=== PATIENT | female | born 1995 | race Caucasian/White ===

== ENCOUNTER → 2018-03-19 | Outpatient (REF) | payer OTHER | LOC: M LAB REF 18:35 | DX: R30.0 Dysuria (principal) | CPT/HCPCS: 87186 ==

== ENCOUNTER → 2018-04-16 | Outpatient (REF) | payer OTHER | LOC: M LAB REF 15:32 | DX: R10.815 Periumbilic abdominal tenderness (principal) | CPT/HCPCS: 87086 ==

== ENCOUNTER 2019-01-20 21:28 | Emergency (ER) | payer OTHER ==
[~2019-01-20] VITALS: Ht 157.5 cm; Wt 75.5 kg
[2019-01-20 21:28] VITALS: BP_DIAS 79
[2019-01-20 22:03] LABS: BASO % 0.2 % (0.0-1.0); EOS # 0.1 10^3/uL (0.0-0.5); EOS % 0.8 % (0.0-3.0); HEMATOCRIT 41.2 % (36.0-47.0); HEMOGLOBIN 14.1 g/dl (12.0-15.5); LYMPH # 2.4 10^3/uL (1.5-5.0); LYMPH % 14.6 % (24.0-44.0); MEAN CORPUSCULAR HEMOGLOBIN 30.5 pg (27.0-33.0); MEAN CORPUSCULAR HGB CONC 34.2 g/dl (32.0-36.5); MONO # 0.8 10^3/uL (0.0-0.8); MONO % 5.1 % (0.0-5.0); NEUTROPHILS # 12.7 10^3/uL (1.5-8.5); NEUTROPHILS % 78.6 % (36.0-66.0); PLATELET COUNT, AUTOMATED 349 10^3/uL (150-450); RED BLOOD COUNT 4.63 10^6/uL (4.00-5.40); WHITE BLOOD COUNT 16.2 10^3/uL (4.0-10.0)
[2019-01-20 22:43] LABS: ALBUMIN 3.6 GM/DL (3.2-5.2); ALT/SGPT 23 U/L (12-78); BILIRUBIN,DIRECT 0.2 MG/DL (0.0-0.2); BILIRUBIN,TOTAL 0.5 MG/DL (0.2-1.0); BLOOD UREA NITROGEN 8 MG/DL (7-18); CALCIUM LEVEL 9.3 MG/DL (8.5-10.1); CARBON DIOXIDE LEVEL 17 MEQ/L (21-32); CHLORIDE LEVEL 103 MEQ/L (98-107); CREATININE FOR GFR 0.63 MG/DL (0.55-1.30); GLOMERULAR FILTRATION RATE > 60.0 (>60); GLUCOSE, FASTING 92 MG/DL (70-100); HCG, SERUM QUANTITATIVE 95440 MIU/ML; LIPASE 136 U/L (73-393); POTASSIUM SERUM 3.7 MEQ/L (3.5-5.1); SODIUM LEVEL 135 MEQ/L (136-145); TOTAL PROTEIN 7.8 GM/DL (6.4-8.2)
[2019-01-20] MEDS ORDERED: PRENCHW PO (23:22)
[2019-01-20] MEDS ORDERED: METOCLOPRAMIDE INJ 10MG/2ML VIAL (J2765) IV ONE (23:30)
[2019-01-20] MEDS ORDERED: NS 1,000 ML IV ONE (23:30)
[2019-01-21] MEDS ORDERED: KEFL500C17 PO (00:28)
[2019-01-21] MEDS ORDERED: CEPHALEXIN 500 MG CAP PO ONE (00:30)
[2019-01-21 01:03] VITALS: BP_SYST 121
== END 2019-01-21 01:04 | disposition home or self-care (01) ==
LOC: M ED 21:28
DX: O23.31 Infections of other parts of urinary tract in pregnancy, first trimester (principal); Z3A.11 11 weeks gestation of pregnancy; Z79.899 Other long term (current) drug therapy
CPT/HCPCS: 80048; 80076; 81001; 83690; 84702; 85025; 87086; 96361; 96374; 99284; J2765

== ENCOUNTER 2019-08-16 09:39 | Inpatient (IN) | payer OTHER ==
[~2019-08-16] VITALS: Ht 157.5 cm; Wt 86.3 kg
[2019-08-16] VITALS (23 sets, daily range): BP systolic 97–149; BP diastolic 54–89
[~2019-08-16 09:39] MED LIST: KEFL500C17 PO; PRENCHW PO
[2019-08-16] MEDS ORDERED: FUSICAP PO (10:04)
[2019-08-16] MEDS ORDERED: miSOPROStol 50 MCG 1/2 TAB (S0191) PO ONE (11:00)
[2019-08-16] MEDS ORDERED: LACTATED RINGER'S 1000 ML IV ONE (11:00)
[2019-08-16] MEDS: LR 1,000 ML IV SCH ×2 (11:02→23:37)
[2019-08-16 11:14] LABS: HEMATOCRIT 32.8 % (36.0-47.0); HEMOGLOBIN 10.6 g/dl (12.0-15.5); MEAN CORPUSCULAR HEMOGLOBIN 26.9 pg (27.0-33.0); MEAN CORPUSCULAR HGB CONC 32.3 g/dl (32.0-36.5); MEAN CORPUSCULAR VOLUME 83.2 fl (80.0-96.0); PLATELET COUNT, AUTOMATED 300 10^3/uL (150-450); RED BLOOD COUNT 3.94 10^6/uL (4.00-5.40); WHITE BLOOD COUNT 10.3 10^3/uL (4.0-10.0)
[2019-08-16] MEDS: miSOPROStol 50 MCG 1/2 TAB (S0191) PO SCH ×2 (16:27→20:15)
[2019-08-16] MEDS ORDERED: fentaNYL 100 MCG/2 ML INJECTION (J3010) As Ordered ONE (21:37)
[2019-08-16] MEDS ORDERED: FENTANYL 2MCG/ML ROPIVACAINE 0.2% IN 0.9% NACL 100ML IVBAG As Ordered ONE (21:40)
[2019-08-16] MEDS: FENTANYL/ROPIVACAINE/NACL BAG 100 ML EPIDURAL SCH (22:31)
[2019-08-16] MEDS ORDERED: EPIDURAL COMMENT XX SCH (22:31)
[2019-08-16] MEDS ORDERED: ONDANSETRON 4MG/2ML VIAL (J2405) IV PRN (22:31)
[2019-08-16] MEDS ORDERED: LACTATED RINGER'S 1000 ML IV PRN (22:31)
[2019-08-16] MEDS ORDERED: diphenhydrAMINE INJ 50MG/ML VIAL (J1200) IV PRN (22:31)
[2019-08-16] MEDS ORDERED: EPIDURAL/PCA KEYS XX PRN (22:31)
[2019-08-16] MEDS ORDERED: REFRIGERATOR IV KEYS XX PRN (22:31)
[2019-08-16] MEDS ORDERED: NALOXONE INJ 0.4 MG/1 ML VIAL (J2310) IV PRN (22:31)
[2019-08-16] MEDS ORDERED: ePHEDrine SULFATE 25 MG/5 ML(5MG/ML) SYRINGE As Ordered ONE (23:00)
[2019-08-16] MEDS: ePHEDrine SULFATE 25 MG/5 ML(5MG/ML) SYRINGE IV PRN ×2 (23:37→23:38)
[2019-08-17] VITALS (22 sets, daily range): BP systolic 109–149; BP diastolic 56–88
[2019-08-17] MEDS: miSOPROStol 50 MCG 1/2 TAB (S0191) PO SCH ×2 (00:15→04:15)
[2019-08-17] MEDS ORDERED: OXYTOCIN DRIP 30 UNITS in IV 1 EA IV SCH ×2 (00:30→07:22)
[2019-08-17] MEDS ORDERED: FENTANYL 2MCG/ML ROPIVACAINE 0.2% IN 0.9% NACL 100ML IVBAG As Ordered ONE (05:16)
[2019-08-17] MEDS: FENTANYL/ROPIVACAINE/NACL BAG 100 ML EPIDURAL SCH (05:21)
[2019-08-17 07:26] LABS: CORD GAS ABE V -12.4; CORD GAS HCO3 V 14.6 MEQ/L; CORD GAS O2 SAT V 59.9 %; CORD GAS PCO2 V 36.8 mmHg; CORD GAS PH V 7.215 UNITS; CORD GAS PO2 V 32.7 mmHg; CORD GAS SBC V 14.3 MEQ/L; CORD GAS TCO2 V 15.7 MEQ/L
[2019-08-17 07:30] LABS: CORD GAS O2 SAT A < 15.0 %
[2019-08-17] MEDS ORDERED: MOM 30ML SUSPENSION UDC PO PRN (07:30)
[2019-08-17] MEDS ORDERED: ACETAMINOPHEN TAB 650MG DOSE (2X325MG) PO PRN (07:30)
[2019-08-17] MEDS ORDERED: ANUSOL HC CREAM 30GM TOP PRN (07:30)
[2019-08-17] MEDS ORDERED: METHYLERGONOVINE MALEATE 0.2 MG TAB PO PRN (07:30)
[2019-08-17] MEDS ORDERED: DIBUCAINE 1% OINTMENT 30GM TOP PRN (07:30)
[2019-08-17] MEDS ORDERED: RHOGAM 300 MCG (1500 IU) INJ (J2790) IM SCH (07:30)
[2019-08-17] MEDS ORDERED: DOCUSATE SODIUM 100 MG CAP PO PRN (07:30)
[2019-08-17] MEDS ORDERED: OXYTOCIN INJ 10 UNITS/ML VIAL (J2590) IV ONE (07:30)
[2019-08-17 07:32] LABS: CORD GAS ABE A -13.8; CORD GAS PCO2 A 60.5 mmHg; CORD GAS PH A 7.066 UNITS; CORD GAS PO2 A 13.2 mmHg; CORD GAS TCO2 A 18.8 MEQ/L
[2019-08-17] MEDS ORDERED: OXYTOCIN INJ 10 UNITS/ML VIAL (J2590) As Ordered ONE (08:16)
--- NOTE | 2019-08-17 08:25 | IPN ---
DATE: 08/17/2019 TIME: 1230 hours This lady has had an epidural in place because of contractions, which were moderate in intensity. PHYSICAL EXAMINATION: The cervix is 2 cm, anterior, -3 station, -2 station with a contraction, bulging membranes are noted and artificial rupture of membranes was drained done draining clear liquid. Polyhydramnios was noted. The vertex came well applied to the cervix. Contractions are still persistent and 2-6 minutes and 90 seconds. If required, we will augment with Pitocin. Category 1 strip now after the epidural. Safe to proceed.
--- NOTE | 2019-08-17 08:44 | HPE ---
DATE OF ADMISSION: 08/16/2019 23-year-old 1, para 0, LMP 11/02/2018, EDC 08/09/2019 at 40 and 1 weeks of gestation for induction of labor. LABORATORY DATA: O+, HIV negative, hep negative, RPR negative, rubella immune. Varicella immune. Pap normal. Urine negative. Gonorrhea and chlamydia negative. Early 1-hour glucose was 136, 3-hour GTT she is not complete but she has been monitoring her glucose and on evaluating her glucose checklist she is in good control. GBS negative. Risk factors were anemia and a BMI of 30.41. Blood pressure is 121/80, respirations 18, pulse 110, temperature 97.7. No urine is available. Hemoglobin 10.6, hematocrit 32.8 and platelets are 300. Symphysis fundus height is 40, vertex OA, heart sounds are normal. Category 1 strip. Bowel sounds are normal in four quadrants. Cervix is posterior, 1-2 cm, -3 station, thick and posterior. The plan is to hydrate the patient, add Cytotec and has planned an epidural, after which an ARM and augment with Pitocin if necessary. The rest of the examination is unremarkable. Normocephalic, atraumatic. Neck: Full range of motion. Pupils equal and reactive to light. Distal pulses are symmetric. No DVT, PE or superficial phlebitis. Chest is clear bilaterally to the bases. No wheezes or rhonchi. No CVA tenderness. Abdomen is soft, as mentioned. She has no arthralgia or myalgia. No complaint of joint pain. No complaint of cough, wheezes, shortness of breath or dyspnea on exertion. No bleeding. No bruising. Neuro complete. No incontinency, urgency or frequency. No nausea, vomiting, diarrhea or constipation. No diabetic issues. No heat or cold issues. She has no history of STDs. No abnormal Pap smears. PAST MEDICAL AND SURGICAL HISTORY: Unremarkable. FAMILY HISTORY: Noncontributory. SOCIAL HISTORY: She does not smoke, drink or abuse drugs. She is . No domestic violence. Her partner is supportive. We discussed the risks and benefits of vaginal delivery, including consent, which is delivery through the vagina with possible use of forceps or vacuum devices if needed for maternal or indications, forceps or vacuum devices may consist with vaginal delivery when normal pushing efforts cannot achieve delivery on their own or when deliveries needed in emergency for baby's well-being. Medications may be used to induce or augment labor in order achieve vaginal delivery. Episiotomy may be required to help the baby deliver vaginally. May also require repair of lacerations or tears to the vagina or vulva that are caused by delivery. In some cases emergencies arise and we have to do an emergency section, these are only done for maternal or indications and we discussed with the provider. delivery through the abdomen incision and some situations section may be safer for the mother and baby than continuing labor and is only performed again for clinically indicated reasons. Risk of vaginal delivery include but not limited to bleeding, infection, injury to the vagina or pelvic structures, injury to baby, damage to the uterus, reaction of anesthesia, uterine rupture, risk of hysterectomy, life-threatening bleeding situations or . Medications used to induce or augment labor may contribute to possible , hysterectomy or hemorrhage. heart rate abnormalities which need emergency section, risk of the perineal vaginal lacerations or risk of urinary or bowel injury. In addition, risks of use of forceps or vacuum include scratches, hematomas of the head, intracranial bleed of the baby or admission to the NICU. The patient expressed understanding and verbalized, 40-minute discussion. All questions were answered. We will continue with the plan of care.
[2019-08-17] MEDS ORDERED: NAPROXEN 250 MG TAB PO PRN (09:00)
[2019-08-17] MEDS: MEASLES,MUMPS,RUBELLA VACCINE INJ (MMR-II) (90707) SC SCH ×2 (09:12→20:32)
--- NOTE | 2019-08-17 14:14 | DN ---
DATE: 08/17/2019 24-year-old 1 admitted for induction of labor at 41 weeks of gestation. Risk factors were anemia and BMI of 30.1. She had an initial 1-hour glucose, which was elevated. She did not complete a 3-hour GTT; however, she did monitor her blood sugars and they were normal. She had an epidural in place. She had a spontaneous vaginal delivery of a live female 8 pounds 9 ounces, 3870 grams, scores of 8 and 9 at 1 and 5 minutes, respectively. Had terminal meconium with a cord around neck times one. Placenta delivered spontaneously thereafter. Three-vessels in the cord. The membranes were stained with meconium. She did have polyhydramnios with an artificial rupture of membranes. Arterial pH was 7.06, base excess -13.8. Venous pH 7.21, base excess -12.4. Prior to delivery, she had a urethral hematoma, significant bilateral labial swelling, multiple large hemorrhoids and the perineum that was swollen and purple from pushing. She sustained a first-degree tear right up the vaginal wall. She did have the suburethral hematoma, which did not extend and did not rupture. After the spontaneous delivery of the baby and the placenta, the repair of the midline vaginal tear with 2-0 Vicryl on a J 339. Sphincter was intact, mucosa was intact. Anterior, posterior and lateral quezada were intact as well. We plan to leave the Castellon catheter in for 6 hours and use an ice diaper during that period of time. In summary, we have a post term gestation, induction of labor, live female . The patient and mother tolerating procedure well. Uterus contracted well down under Pitocin.
[2019-08-17] MEDS: PRENATAL VITAMINS CHEWABLE TABLET PO SCH (14:52)
[2019-08-17] MEDS: ACETAMINOPHEN 500 MG TAB PO PRN (18:51)
[2019-08-18 06:00] VITALS: BP 119/62
[2019-08-18 07:02] LABS: HEMATOCRIT 27.5 % (36.0-47.0); HEMOGLOBIN 8.7 g/dl (12.0-15.5); MEAN CORPUSCULAR HEMOGLOBIN 26.7 pg (27.0-33.0); MEAN CORPUSCULAR HGB CONC 31.6 g/dl (32.0-36.5); MEAN CORPUSCULAR VOLUME 84.4 fl (80.0-96.0); PLATELET COUNT, AUTOMATED 248 10^3/uL (150-450); RED BLOOD COUNT 3.26 10^6/uL (4.00-5.40); WHITE BLOOD COUNT 16.5 10^3/uL (4.0-10.0)
--- NOTE | 2019-08-18 07:40 | IPN ---
DATE: 08/18/2019 This lady is a 24-year-old 1 now para 1 admitted for induction of labor at 41 weeks, had spontaneous vaginal delivery female 8 pounds 9 ounces, 3870 grams, scores of eight and nine at 1 and 5 minutes respectively. Arterial pH 7.06, base excess -13.8, venous pH 7.21, base excess -12.4. She did have some polyhydramnios and meconium stained liquid staining the membranes of the placenta and the baby. Cord was around the neck times one loose. She has a BMI of 30.1 and has had anemia. On her first day we discussed phlebitis, cystitis, mastitis, endometritis and cellulitis, diet, exercise, pain management, perineal, breast and wound care. Her admitting hemoglobin was 10.6, hematocrit 32.8 and platelets were 300. Her day #1 hemoglobin is 8.7, hematocrit 27.5 and platelets are 248. She is asymptomatic. Her vital signs this morning her blood pressure is 119/62, respirations 18, pulse 104, temperature 97.8. She is breast-feeding, doing well, passing gas and has voided. The rest examination is unremarkable. She is normocephalic, atraumatic. Neck full range of motions. Pupils equal and reactive to light. Distal pulses are symmetric. No evidence of deep vein thrombosis (DVT), pulmonary embolism (PE), or superficial phlebitis. Chest is clear bilaterally to the bases. No wheezes or rhonchi. No CVA tenderness. Abdomen soft. Uterus 2 below. Lochia is moderate, four quadrant bowel sounds are noted. Perineum is healing. She has no rashes, lesions or pruritus. No arthralgia, myalgia. No complaint joint pain. No complaint cough, we shortness of breath or dyspnea on exertion. No nausea, vomiting, diarrhea or constipation. In summary we have a late term gestation delivered a live female infant. Plans are for discharge tomorrow. Medications were dispensed at [facility]. Six week checkup at [facility].
[2019-08-18] MEDS: PRENATAL VITAMINS CHEWABLE TABLET PO SCH (07:48)
[2019-08-18] MEDS: ACETAMINOPHEN 500 MG TAB PO PRN ×2 (09:46→18:04)
[2019-08-18] MEDS ORDERED: PILL CUTTER 1 EACH XX PRN (10:00)
[2019-08-18 18:47] VITALS: BP 122/69
[2019-08-19] MEDS: ACETAMINOPHEN 500 MG TAB PO PRN (00:55)
[2019-08-19 06:00] VITALS: BP 110/65
[2019-08-19] MEDS: PRENATAL VITAMINS CHEWABLE TABLET PO SCH (07:44)
--- NOTE | 2019-08-19 10:02 | IPNPDOC ---
Progress Note Date of Service: Aug 19, 2019 Day#: 2 Progress Note PPD 2 SUBJECT: Mireya is a 24yo [id number] s/p uncomplicated at 41wk after undergoing IOL for LTG, having a 1mll and repair as well as a andrew-urethral hematoma, doing well day # 2. She has been ambulating, voiding spontaneously without issue and tolerating regular diet. Breast feeding without issue. Reports lochia is like a normal period. No f/c/n/v/CP/SOB. OBJECTIVE: VITAL SIGNS: Within normal limits, afebrile. Alert and oriented times three. Abdomen: Fundus firm at U-2. Soft, NTTP. Extremities: no pain with palpation of calves, trace pedal edema ASSESSMENT: Mireya is a 24yo [id number] s/p uncomplicated at 41wk after undergoing IOL for LTG, having a 1mll and repair as well as a andrew-urethral hematoma, doing well day # 2. Vitals within normal limits, afebrile, hemodynamically stable with no evidence of infection. PLAN: 1. Discharge to home today. 2. Tylenol and Motrin for pain. 3. Encourage breast feeding 4. Will further discuss contraception at 6wk PP visit 5. Routine PP visit in 2 weeks [address] clinic per Dr. Robles's instructions to re-eval laceration repair/hematoma resolution 6. Discussed return precautions at length. 7. No heavy lifting and vaginal rest [address] Millicent Betancourt MD VS, I&O, 24H, Fishbone Vital Signs/I&O Vital Signs Date Time Temp Pulse Resp B/P (MAP) Pulse Ox O2 Delivery O2 Flow Rate FiO2 08/19/19 06:00 98.7 79 17 110/65 (80) 100 Room Air Millicent Betancourt MD Aug 19, 2019 10:02
[2019-08-19] MEDS ORDERED: DOCU100C16 PO (10:04)
[2019-08-19] MEDS ORDERED: ACET-683 PO (10:04)
[2019-08-19] MEDS ORDERED: DIBU10OI TOP (10:04)
--- NOTE | 2019-08-19 10:06 | DS.PDOC ---
Discharge Summary General Date of Admission Aug 16, 2019 at 09:39 Date of Discharge Aug 19, 2019 Discharge Summary PROCEDURES PERFORMED DURING STAY: spontaneous vaginal delivery ADMITTING DIAGNOSES: 1. Induction of labor at 41 weeks for late term gestation DISCHARGE DIAGNOSES: 1. Induction of labor at 41 weeks for late term gestation, delivered COMPLICATIONS/CHIEF COMPLAINT: Induction. HISTORY OF PRESENT ILLNESS/HOSPITAL COURSE: Mireya is a 24yo [id number] s/p uncomplicated at 41wk after undergoing IOL for LTG, having a 1mll and repair as well as a andrew-urethral hematoma, doing well day # 2. She had a benign course and at time of discharge, her vitals within normal limits, afebrile, hemodynamically stable with no evidence of infection. DISCHARGE MEDICATIONS: Please see below. ALLERGIES: Please see below. PHYSICAL EXAMINATION ON DISCHARGE: VITAL SIGNS: Within normal limits, afebrile. Alert and oriented times three. Abdomen: Fundus firm at U-2. Soft, NTTP. Extremities: no pain with palpation of calves, trace pedal edema LABORATORY DATA: Please see below. DIET: regular DISCHARGE PLAN/INSTRUCTIONS: 1. Discharge to home today. 2. Tylenol and Motrin for pain. 3. Encourage breast feeding 4. Will further discuss contraception at 6wk PP visit 5. Routine PP visit in 2 weeks [address] clinic per Dr[address] Robles's instructions to re-eval laceration repair/hematoma resolution 6. Discussed return precautions at length. 7. No heavy lifting and vaginal rest 6 weeks]. DISCHARGE CONDITION: Stable TIME SPENT ON DISCHARGE: Greater than [address] Millicent Betancourt MD Vital Signs/I&Os Vital Signs Date Time Temp Pulse Resp B/P (MAP) Pulse Ox O2 Delivery O2 Flow Rate FiO2 08/19/19 06:00 98.7 79 17 110/65 (80) 100 Room Air Discharge Medications Scheduled Iron,Fm,Ps/Folic/B,C18/L.casei (Fusion Plus Capsule) 1 Each Capsule, 1 CAP PO DAILY, (Reported) Pnv No.118/Iron Fumarate/FA ( 19 Chewable Tablet) 1 Each Tab.chew, 2 CHW PO DAILY, (Reported) Scheduled PRN Acetaminophen (Acetaminophen) 500 Mg Tablet, 1,000 MG PO Q6HP PRN for PAIN LEVEL 6-10 Dibucaine (Dibucaine) 28 Gm Oint...g., 0 DOSE TOP Q4HP PRN for PAIN Docusate Sodium (Docusate Sodium) 100 Mg Capsule, 100 MG PO QHSP PRN for CONSTIPATION Allergies Coded Allergies: No Known Allergies (Unverified , 08/16/19) Millicent Betancourt MD Aug 19, 2019 10:06
== END 2019-08-19 12:45 | disposition home or self-care (01) | DRG 806 ==
LOC: M LDI 09:39 → M OBS 08-17 11:35
PROVIDERS: ADMIT Obstetrics & Gynecology; ATTEND Obstetrics & Gynecology
PROC: 3E033VJ Introduction of Other Hormone into Peripheral Vein, Percutaneous Approach (ICD-10-PCS; 2019-08-16)
PROC: 10E0XZZ Delivery of Products of Conception, External Approach (ICD-10-PCS; principal; 2019-08-17)
PROC: 0HQ9XZZ Repair Perineum Skin, External Approach (ICD-10-PCS; 2019-08-18)
PROC: 10907ZC Drainage of Amniotic Fluid, Therapeutic from Products of Conception, Via Natural or Artificial Opening (ICD-10-PCS; 2019-08-18)
DX: O48.0 Post-term pregnancy (principal); Z37.0 Single live birth; O22.43 Hemorrhoids in pregnancy, third trimester; Z3A.40 40 weeks gestation of pregnancy; O77.0 Labor and delivery complicated by meconium in amniotic fluid; O69.81X0 Labor and delivery complicated by cord around neck, without compression, not applicable or unspecified; O40.3XX0 Polyhydramnios, third trimester, not applicable or unspecified; O70.0 First degree perineal laceration during delivery; N36.8 Other specified disorders of urethra

== ENCOUNTER → 2020-03-15 | Outpatient (REF) | payer OTHER ==
[~2020-03-15] MED LIST changes: +ACET-683 PO; +DIBU10OI TOP; +DOCU100C16 PO; +FUSICAP PO
== END ==
LOC: M LAB REF 15:48
PROVIDERS: ATTEND Nurse Practitioner Family
DX: R11.2 Nausea with vomiting, unspecified (principal)